=== PATIENT | female | born 1980 | race Two or more races ===

== ENCOUNTER 2016-09-18 01:05 | Emergency (ER) | payer SELFPAY ==
[~2016-09-18] VITALS: Ht 165.1 cm; Wt 52.6 kg
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
--- NOTE | 2016-09-18 02:59 | NUR ---
PT RESTING IN ER BED, NAD NOTED, SKIN WARM AND DRY. PT IS ON PHYS THER. WILL CONITNUE TO MONITOR
[2016-09-18 04:51] VITALS: BP 139/86
--- NOTE | 2016-09-18 04:51 | NUR ---
Patient discharged to home in stable condition. Written and verbal after care instructions given. Patient verbalizes understanding of instruction. PT ambulatory with a steady gait VITAL SIGNS WITHIN NORMAL LIMITS.
== END 2016-09-18 05:41 | disposition home or self-care (01) ==
LOC: EDBD 01:08 → ER 01:08
DX: F10.129 Alcohol abuse with intoxication, unspecified (principal)
CPT/HCPCS: 36415; 82962-TC; A4606; G0480; Z7610